=== PATIENT | male | born 1970 | race Caucasian/White ===

== ENCOUNTER 2025-04-23 12:10 | Emergency (ER) | payer OTHER ==
[~2025-04-23] VITALS: Ht 172.7 cm; Wt 83.9 kg
[~2025-04-23 12:10] MED LIST: HYDACE5 PO
[2025-04-23] MEDS ORDERED: Ketorolac Tromethamine 30mg Vial IM ONE (14:00)
[2025-04-23] MEDS ORDERED: CEPH500 PO (14:25)
== END 2025-04-23 14:41 | disposition home or self-care (01) ==
LOC: ER 12:10
DX: S61.216A Laceration without foreign body of right little finger without damage to nail, initial encounter (principal); W26.0XXA Contact with knife, initial encounter; Z79.899 Other long term (current) drug therapy
CPT/HCPCS: 12001; 73140; 90471; 90715; 96372-59; 99283-25; A9270; J1885